=== PATIENT | female | born 1985 | race Caucasian/White ===

== ENCOUNTER 2018-08-12 11:30 | Inpatient (IN) | payer OTHER ==
[~2018-08-12] VITALS: Ht 170.2 cm; Wt 3.2 kg
[~2018-08-12 11:30] MED LIST: ULTRAM50 MG PO
[2018-08-30] MEDS ORDERED: VALTREX1000 MG PO (08:01)
[2018-08-30] MEDS ORDERED: PRENATAL TABLE1 EACH PO (08:01)
[2018-09-03] MEDS ORDERED: OXYC1TAB9 PO (12:05)
[2018-09-03] MEDS ORDERED: DOCUSATE SODIU100 MG PO (12:05)
[2018-09-03] MEDS ORDERED: IBUPROFEN800 MG PO (12:05)
[2018-09-03] MEDS ORDERED: FAMOTIDINE20 MG/2 M1 PO (12:06)
[2018-09-03] MEDS ORDERED: GAS RELIEF125 MG PO (12:06)
[2018-09-03] MEDS ORDERED: PROTONIX IV40 MG PO (12:06)
[2018-09-03] MEDS ORDERED: ONDANSETRON ODT4 MG PO (12:07)
[2018-09-03] MEDS ORDERED: PREPLUS CA-FE1 EACH PO (12:07)
== END 2018-09-03 12:39 | disposition home or self-care (01) | DRG 787 ==
LOC: LDR 08-23 11:30 → OB/GYN 08-30 10:23
PROVIDERS: ADMIT Obstetrics & Gynecology
PROC: 4A0HXFZ Measurement of Products of Conception, Cardiac Rhythm, External Approach (ICD-10-PCS; 2018-08-30)
PROC: 10D00Z1 Extraction of Products of Conception, Low, Open Approach (ICD-10-PCS; principal; 2018-08-30 13:00)
DX: O82 Encounter for cesarean delivery without indication (principal); O98.513 Other viral diseases complicating pregnancy, third trimester; B00.89 Other herpesviral infection; O64.0XX0 Obstructed labor due to incomplete rotation of fetal head, not applicable or unspecified; Z3A.39 39 weeks gestation of pregnancy; Z37.0 Single live birth

== ENCOUNTER 2018-08-30 07:31 | Outpatient (CLI) | payer OTHER ==
[2018-08-30] MEDS ORDERED: PRENATAL TABLE1 EACH PO (08:01)
[2018-08-30] MEDS ORDERED: VALTREX1000 MG PO (08:01)
== END 2018-08-30 10:22 | disposition still patient (30) ==
LOC: OBS/DEL 07:31
DX: O47.1 False labor at or after 37 completed weeks of gestation (principal); Z34.03 Encounter for supervision of normal first pregnancy, third trimester